=== PATIENT | male | born 1950 | race Hispanic/Latino ===

== ENCOUNTER 2018-01-16 06:39 | Day surgery (SDC) | payer MEDICARE, OTHER ==
[2016-08-23 09:02] VITALS: BMI 29.0
[2018-01-16] MEDS ORDERED: Propofol 10 mg/ml Inj (20 ML) ONE (07:56)
[2018-01-16] MEDS ORDERED: Sodium Chloride 0.9% 1,000 ML IV SCH (08:45)
[2018-01-16 09:22] VITALS: PULSE 53; RESP 18; TEMP 97.4; O2SAT 96
[2018-01-16 09:31] VITALS: BP 111/63
== END 2018-01-16 09:37 | disposition home or self-care (01) ==
LOC: ENDO 06:39
PROVIDERS: ATTEND Specialist
DX: Z12.11 Encounter for screening for malignant neoplasm of colon (principal); D12.3 Benign neoplasm of transverse colon; K57.30 Diverticulosis of large intestine without perforation or abscess without bleeding; K64.8 Other hemorrhoids; E03.9 Hypothyroidism, unspecified